=== PATIENT | female | born 1935 | race Caucasian/White ===

== ENCOUNTER 2016-08-06 17:39 | Emergency (ER) | payer MEDICARE, BC ==
[2016-08-06 18:04] VITALS: TEMP 98.1; O2SAT 98
--- NOTE | 2016-08-06 18:12 | ED.PDOC ---
History of Present Illness - General Chief Complaint: Respiratory Problem Stated Complaint: Just does not feel right. Time Seen by Provider: 08/06/16 17:59 Source: patient, RN notes reviewed, Vital Signs reviewed Exam Limitations: no limitations - History of Present Illness Comments: Patient started with URI symptoms a week ago. She was seen at an urgent care clinic and given a steroid shot and a Z-pack. Feels she is not improving though her cough is almost resolved. She is having ear bubbling and body aches. Reports she feels like she is getting over the flu. She has not been checked for the flu. Went to her PCP's office today and reports MANAGER NEONATAL wants her to have lab work and a CXR done. Timing/Duration: week Cough Quality/Degree: mild Possible Cause: occasional episodes Improving Factors: medication Worsening Factors: nothing Associated Symptoms: cough, earache, muscle aches, sore throat Respiratory Risk Factors: no cause identified Allergies/Adverse Reactions: Allergies Acetaminophen [From Tylenol PM Extra Strength] Adverse Reaction (Verified 18:09) Cyclobenzaprine [From Flexeril] Adverse Reaction (Verified 08/06/16 18:09) Diphenhydramine [From Tylenol PM Extra Strength] Adverse Reaction (Verified 04/12 18:09) Home Medications: Ambulatory Orders Amlodipine Besylate 10 mg PO BEDTIME 08/06/16 Azithromycin [Zithromax Z-Jorge] 1 ea PO DAILY 08/06/16 Cetirizine HCl [ZyrTEC] 10 mg PO DAILY 08/06/16 Dextromethorphan-Guaifenesin [Mucinex Dm 30-600 mg] 1 tab PO BID 08/06/16 Duloxetine HCl 30 mg PO DAILY 08/06/16 Duloxetine HCl 60 mg PO BEDTIME 08/06/16 Folic Acid [(None)] 1 mg PO DAILY 08/06/16 Losartan Potassium 100 mg PO DAILY 08/06/16 Methotrexate Sodium [Methotrexate] 10 mg PO WKLY 08/06/16 Pregabalin [Lyrica] 75 mg PO BID 08/06/16 Rotigotine [Neupro] 3 mg TD DAILY 08/06/16 Review of Systems - Review of Systems Constitutional: States: malaise. Denies: chills, fever EENTM: States: ear pain, throat pain. Denies: ear discharge, nose pain, nose congestion, throat swelling, mouth pain, mouth swelling Respiratory: States: cough. Denies: short of breath, stridor, wheezing Cardiology: States: no symptoms reported. Denies: chest pain, palpitations Gastrointestinal/Abdominal: States: no symptoms reported. Denies: abdominal pain, diarrhea, nausea, vomiting Genitourinary: States: no symptoms reported Musculoskeletal: States: muscle pain. Denies: back pain, joint pain, joint swelling, muscle stiffness, neck pain Skin: States: no symptoms reported Neurological: States: no symptoms reported Endocrine: States: no symptoms reported Hematologic/Lymphatic: States: no symptoms reported Past Medical History (General) - Patient Medical History Hx Stroke: No Hx Asthma: No Hx Hypertension: Yes Hx Diabetes: No Surgical History: Hysterectomy, other - Vaccination History Hx Influenza Vaccination: Yes Hx Pneumococcal Vaccination: Yes - Female History Patient is a Female of Child Bearing Age (10 -59 yrs old): No - Triage Comment ED Triage Comment: Patient has been to [facility] two times this week, and she went to Dr. Lemons office today. Family Medical History - Family History Mother Family History: Unknown Physical Exam - Physical Exam General Appearance: Alert, Comfortable, No apparent distress, Well Developed, Well Groomed, Well Hydrated, Well Nourished Eye Exam: bilateral normal ENT Exam: normal ENT inspection - except cerumen impaction in R ear canal Neck: non-tender, full range of motion, supple, normal inspection, trachea midline Respiratory: chest non-tender, lungs clear, normal breath sounds, no respiratory distress, no accessory muscle use Cardiovascular/Chest: regular rate, rhythm, no edema, no gallop, no JVD, no murmur Extremity: normal range of motion, non-tender, normal inspection Neurologic: no motor/sensory deficits, alert, normal mood/affect, oriented x 3 Skin Exam: normal color, warm/dry Lymphatic: no adenopathy Progress - Results/Orders Results/Orders: Laboratory Tests 08/06/16 18:45 WBC 6.3 RBC 4.44 Hgb 13.4 Hct 40.2 MCV 90.5 MCH 30.2 MCHC 33.4 RDW 13.1 Plt Count 257 MPV 8.4 Absolute Neuts (auto) 3.90 Absolute Lymphs (auto) 1.60 Absolute Monos (auto) 0.50 Absolute Eos (auto) 0.30 Absolute Basos (auto) 0.10 Neutrophils % 61.3 Lymphocytes % 25.3 Monocytes % 7.8 Eosinophils % 4.4 Basophils % 1.2 Sodium 141 Potassium 3.6 Chloride 104 Carbon Dioxide 30 Anion Gap 10.6 L BUN 18 Creatinine 0.66 BUN/Creatinine Ratio 27.3 H Random Glucose 91 Serum Osmolality 282.7 Calcium 9.1 Total Bilirubin 1.0 AST 27 ALT 21 Alkaline Phosphatase 72 Serum Total Protein 7.3 Albumin 4.0 Globulin 3.3 Albumin/Globulin Ratio 1.2 - EKG/XRAY/CT XRAY: chest - Normal Departure - Departure Clinical Impression: Upper respiratory infection Time of Disposition: 19:18 Disposition: Discharge to Home or Self Care Condition: Good Departure Forms: ED Discharge - Pt. Copy, Patient Portal Self Enrollment Instructions: DI for Viral Upper Respiratory Infection -- Adult Diet: resume usual diet Activity: increase activity as tolerated Home Medications: Ambulatory Orders Amlodipine Besylate 10 mg PO BEDTIME 08/06/16 Azithromycin [Zithromax Z-Jorge] 1 ea PO DAILY 08/06/16 Cetirizine HCl [ZyrTEC] 10 mg PO DAILY 08/06/16 Dextromethorphan-Guaifenesin [Mucinex Dm 30-600 mg] 1 tab PO BID 08/06/16 Duloxetine HCl 30 mg PO DAILY 08/06/16 Duloxetine HCl 60 mg PO BEDTIME 08/06/16 Folic Acid [(None)] 1 mg PO DAILY 08/06/16 Losartan Potassium 100 mg PO DAILY 08/06/16 Methotrexate Sodium [Methotrexate] 10 mg PO WKLY 08/06/16 Pregabalin [Lyrica] 75 mg PO BID 08/06/16 Rotigotine [Neupro] 3 mg TD DAILY 08/06/16
--- NOTE | 2016-08-06 19:16 | RAD ---
EXAM DESCRIPTION: Chest,2 Views CLINICAL HISTORY: 80 years Female cough/fever COMPARISON: None. FINDINGS: The cardiomediastinal silhouette appears unremarkable.Atherosclerotic calcifications in the thoracic aorta.The lungs appear mildly hyperexpanded.No consolidating infiltrates or pleural effusions.No pneumothorax. IMPRESSION: No acute abnormality is identified. Electronically signed by: Silverio Chu MD 08/06/2016 6:28 PM BILLING COLLECTIONS SPECIALIST
[2016-08-06 19:31] VITALS: BP 160/90
--- NOTE | 2016-08-18 13:44 | RAD ---
EXAM DESCRIPTION: Chest,2 Views CLINICAL HISTORY: 80 years Female cough/fever COMPARISON: None. FINDINGS: The cardiomediastinal silhouette appears unremarkable.Atherosclerotic calcifications in the thoracic aorta.The lungs appear mildly hyperexpanded.No consolidating infiltrates or pleural effusions.No pneumothorax. IMPRESSION: No acute abnormality is identified. Electronically signed by: Silverio Chu MD 08/06/2016 6:28 PM TELEPHONE SERVICES SALES REPRESENTATIVE
--- NOTE | 2016-08-22 23:59 | RAD ---
EXAM DESCRIPTION: Chest,2 Views CLINICAL HISTORY: 80 years Female cough/fever COMPARISON: None. FINDINGS: The cardiomediastinal silhouette appears unremarkable.Atherosclerotic calcifications in the thoracic aorta.The lungs appear mildly hyperexpanded.No consolidating infiltrates or pleural effusions.No pneumothorax. IMPRESSION: No acute abnormality is identified. Electronically signed by: Silverio Chu MD 08/06/2016 6:28 PM SCRAP HOOKER
--- NOTE | 2016-08-23 08:57 | RAD ---
EXAM DESCRIPTION: Chest,2 Views CLINICAL HISTORY: 80 years Female cough/fever COMPARISON: None. FINDINGS: The cardiomediastinal silhouette appears unremarkable.Atherosclerotic calcifications in the thoracic aorta.The lungs appear mildly hyperexpanded.No consolidating infiltrates or pleural effusions.No pneumothorax. IMPRESSION: No acute abnormality is identified. Electronically signed by: Silverio Chu MD 08/06/2016 6:28 PM [employer]
== END 2016-08-06 19:32 | disposition home or self-care (01) ==
LOC: ER 17:39
DX: J06.9 Acute upper respiratory infection, unspecified (principal); I10 Essential (primary) hypertension; Z79.899 Other long term (current) drug therapy; Z88.8 Allergy status to other drugs, medicaments and biological substances; Z88.6 Allergy status to analgesic agent